=== PATIENT | male | born 2000 | race Caucasian/White ===

== ENCOUNTER 2022-08-18 18:52 | Emergency (ER) | payer BC, OTHER ==
[~2022-08-18] VITALS: Ht 188 cm; Wt 81.8 kg
[2022-08-18 18:57] VITALS: TEMP 98.3
[2022-08-18 20:51] VITALS: BP 126/77; PULSE 86
== END 2022-08-18 21:12 | disposition home or self-care (01) ==
LOC: COL.ER 18:52
DX: S01.81XA Laceration without foreign body of other part of head, initial encounter (principal); Z28.310 Unvaccinated for COVID-19; W01.198A Fall on same level from slipping, tripping and stumbling with subsequent striking against other object, initial encounter; Y93.61 Activity, american tackle football